=== PATIENT | female | born 1985 | race Caucasian/White ===

== ENCOUNTER 2017-08-19 13:13 | Outpatient (CLI) | payer BC | END 2017-08-19 13:14 | disposition home or self-care (01) | LOC: BICRAD 13:13 | PROVIDERS: ATTEND Allergy & Immunology | DX: R05 Cough (principal) | CPT/HCPCS: 71046 ==

== ENCOUNTER 2018-03-26 13:51 | Outpatient (CLI) | payer BC ==
--- NOTE | 2018-03-26 16:14 | ULT ---
PELVIC ULTRASOUND: Date: 03/26/18 HISTORY: Miscarriage. No heart tones. Decreasing beta HCG FINDINGS: The uterus measures 10.2 x 6.4 x 6.8 cm. The right ovary measures 1.7 x 1.4 x 2.1 cm. The left ovary measures 2.2 x 2.2 x 3.0 cm. Flow is demonstrated to both ovaries. No free fluid is seen in the cul-d e-sac. A single intrauterine gestation is seen with measurements corresponding to an estimated gestational a ge of 7 weeks/0 days. The gestational sac diameter measures 2.12 cm. Yolk sac and pole are not visualized. No heart tones are identified. IMPRESSION: Single intrauterine gestation of 7 weeks estimated gestational age without pole of heart rate. Correlation with serial serum beta HCG and follow-up ultrasound is recommended. POS: MARTIN
== END 2018-03-26 13:52 | disposition home or self-care (01) ==
LOC: SCSULT 13:51
PROVIDERS: ATTEND Family Medicine
DX: O03.9 Complete or unspecified spontaneous abortion without complication (principal); Z3A.01 Less than 8 weeks gestation of pregnancy
CPT/HCPCS: 36415; 76856; 84702

== ENCOUNTER 2018-05-23 12:17 | Outpatient (CLI) | payer BC ==
--- NOTE | 2018-05-23 12:51 | RAD ---
F3 views of the sacroiliac joints: 05/23/2018 COMPARISON: None HISTORY: Sacroiliitis FINDINGS: There is no widening of the sacroiliac joints or the pubic symphysis. There is a suggestion of mild increased sclerosis associated with the inferior aspect of the right sacroiliac joint. Left sacroiliac joint appears grossly unremarkable. No obvious erosion. No significant osteophytosis. IMPRESSION: Question mild degenerative changes of the right sacroiliac joint. Evaluation for sacroili itis could be best performed via MRI with and without contrast.
== END 2018-05-23 12:18 | disposition home or self-care (01) ==
LOC: BICRAD 12:17
PROVIDERS: ATTEND Internal Medicine Rheumatology
DX: M46.1 Sacroiliitis, not elsewhere classified (principal)
CPT/HCPCS: 72202

== ENCOUNTER 2018-07-21 16:00 | Outpatient (CLI) | payer BC | END 2018-07-21 16:01 | disposition home or self-care (01) | LOC: SLEEPLAB 16:00 | PROVIDERS: ATTEND Family Medicine | DX: G47.10 Hypersomnia, unspecified (principal); R53.83 Other fatigue | CPT/HCPCS: 95806 ==

== ENCOUNTER 2018-08-30 12:23 | Emergency (ER) | payer BC ==
[2018-08-30 13:15] LABS: #Basophils 0.1 thou/uL (0.0-0.2); #Eosinphils 0.1 thou/uL (0.0-0.7); #Lymphocytes 2.7 thou/uL (1.20-3.40); #Monocytes 0.6 thou/uL (0.11-0.59); #Neutrophils 4.9 thou/uL (1.40-6.50); %Basophils 0.7 % (0.0-1.0); %Eosinophils 0.7 % (0.0-10.0); %Lymphocytes 32.9 % (21.0-51.0); %Monocytes 6.9 % (0.0-10.0); %Neutrophils 58.7 % (42.0-75.0); Hemoglobin 12.3 g/dL (12.0-16.0); Mean Corpuscular HGB CONC 33.5 g/dL (32.0-36.0); Mean Corpuscular Hemoglobin 31.5 pg (27.0-31.0); Mean Corpuscular Volume 93.8 fL (78.0-98.0); Mean Platelet Volume 8.2 fL (7.4-10.4); Platelet Count 200 thou/uL (130-400); RBC Distribution Width 11.6 % (11.5-14.5); Red Blood Cell (RBC) Count 3.89 mill/uL (4.20-5.40); White Blood Cell (WBC) Count 8.3 thou/uL (4.8-10.8)
[2018-08-30 13:18] LABS: Bilirubin Negative (Negative); Blood, Urine Negative (Negative); Clarity Clear (Clear); Glucose, Urine (Dipstick) Normal (Negative); Leukocyte Negative Leu/uL (Negative); Nitrite Negative (Negative); Protein, Urine (Dipstick) Negative (Neg-Trace); Urobilinogen Normal mg/dL (Less than 2)
[2018-08-30 13:21] LABS: Pregnancy Test - Urine (BHCG) POSITIVE (Negative); Pregu Control Background? CLEAR/WHITE (CLR/WHITE); Pregu Control Bar Appear? YES (CONTROL BAR); Specific Gravity 1.004 (1.002-1.036)
--- NOTE | 2018-08-30 14:17 | ULT ---
TRANSABDOMINAL TRANSVAGINAL PELVIC ULTRASOUND DATE:: 08/30/2018 1:15 PM CLINICAL HISTORY: Pelvic cramping with history of . COMPARISON: None. TECHNIQUE: Grayscale, color Doppler and spectral Doppler images were obtained of the pelvis see a tra nsabdominal transvaginal approach Uterus: Size: 12.4 x 8.9 x 10.8 cm Mass: None Cervix: Within normal limits Endometrium: There is an intrauterine gestational sac containing a pole and yolk sac. Yolk sac measures 3.7 mm. The crown-rump length is 7.13 cm giving an estimated gestational age of 13 weeks 2 days. Cardiac activity is noted in 162 bpm. No perigestational hemorrhage is evident. Ovaries: Size: right measures 2.7 x 1.1 x 2 cm; left measures 2.8 x 1.4 x 2.1 cm Mass: None. Flow: Normal Cul-de-sac: No free fluid IMPRESSION: Single live intrauterine gestation. The average gestational age by ultrasound is 13 weeks and 2 days with estimated due to March 05, 2019
== END 2018-08-30 15:38 | disposition home or self-care (01) ==
LOC: ERS 12:23
DX: O20.0 Threatened abortion (principal); Z3A.14 14 weeks gestation of pregnancy
CPT/HCPCS: 76856; 81003; 81025; 84702; 85025; 86900; 86901; 93976

== ENCOUNTER 2018-09-30 07:31 | Outpatient (CLI) | payer BC ==
--- NOTE | 2018-09-30 08:38 | ULT ---
OB ULTRASOUND: 09/30/18 HISTORY: anatomy. FINDINGS: A single live intrauterine gestation is seen with measurements corresponding to an estimated gestatio nal age of 17 weeks, 6 days and ANKIT at 03/04/2019. The estimated weight measures 207 grams or 7 oz (44th percentile by Hadlock criteria). measurements are as follows: BPD 3.86 cm 17 weeks, 6 days HC 14.52 cm 17 weeks, 6 days AC 11.99 cm 17 weeks, 5 days FL 2.55 cm 17 weeks, 6 days heart rate measures 150 beats per minute. Placenta is anteriorly located without evidence of pl acenta previa. WENDY measures 9.5 cm. Three vessel cord, cord insertion, kidneys, bladder, stomach, four chamber heart, lateral ventr icles, cerebellum, spine, lips/nose, upper and lower extremities are visualized. No definite an omalies are seen. The cervical length measures 3.6 cm. IMPRESSION: Single live IUP of 17 weeks, 6 days estimated gestational age and ANKIT at 03/04/2019. POS: MARTIN
== END 2018-09-30 07:32 | disposition home or self-care (01) ==
LOC: BICULT 07:31
PROVIDERS: ATTEND Family Medicine
DX: Z34.82 Encounter for supervision of other normal pregnancy, second trimester (principal); Z3A.17 17 weeks gestation of pregnancy
CPT/HCPCS: 76805

== ENCOUNTER 2019-01-07 17:54 | Day surgery (SDC) | payer BC ==
[2019-01-07 18:28] VITALS: BP 120/58; TEMP 98.7
[2019-01-07 18:29] VITALS: BMI 25.3
[2019-01-07] MEDS ORDERED: hydrALAZINE 20 MG/ML VIAL SLOW IVP PRN (20:34)
[2019-01-07 20:56] LABS: Bacteria/HPF None Seen HPF (None Seen); Bilirubin Negative (Negative); Blood, Urine Negative (Negative); Clarity Clear (Clear); Glucose, Urine (Dipstick) Normal (Negative); Leukocyte Negative Leu/uL (Negative); Nitrite Negative (Negative); Protein, Urine (Dipstick) Negative (Neg-Trace); RBC/HPF None Seen HPF (0-3); Squamous Epithelial 0-3 HPF (0-3); Urobilinogen Normal mg/dL (Less than 2); WBC/HPF 0-3 HPF (0-3)
--- NOTE | 2019-01-07 21:44 | PRG ---
DATE OF SERVICE: 01/07/2019 PRIMARY OBSTETRIC: Iris Hidalgo MD CHIEF COMPLAINT: Pelvic pressure and abdominal pains. HISTORY OF PRESENT ILLNESS: The patient is a 33-year-old G4, P2 female with an intrauterine at 31 weeks and 6 days, presenting to Labor and Delivery with experiencing pelvic pressure and recurrent abdominal pains. The patient does report that she had a similar sensation when she was about to go into labor with her previous . The patient denies actual pain associated with the sensation, feeling more of this tightening. She denies any vaginal bleeding that she does report. She has been having more discharge than last couple days than usual. She also reports that she has had a yeast infection a couple times with this already. The patient reports to being on [place] for history of labor. She reports a recent illness with elevated temperature and a cough. She denies headache. Denies chest pain or shortness of breath. Denies nausea or vomiting. Reports some constipation. Denies diarrhea. Denies any new rashes. Denies hip problems, knee problems, or muscle weakness. Denies urinary urgency or frequency. PAST MEDICAL HISTORY: Mark's syndrome and ankylosing spondylitis. PAST SURGICAL HISTORY: She has had wisdom teeth removed. She has had nasal surgery. ALLERGIES: AMOXICILLIN, CODEINE, AND ERYTHROMYCIN. MEDICATIONS: vitamins and thyroid medication. SOCIAL HISTORY: Denies drug, alcohol, or tobacco use. OB LABS: Hepatitis B surface antigen is nonreactive in the first trimester. RPR nonreactive in the first trimester. HIV nonreactive in the third trimester. She is rubella immune. REVIEW OF SYSTEMS: Per HPI. PHYSICAL EXAMINATION: VITAL SIGNS: Blood pressure is 107/58, heart rate of 90, respiratory rate of 16, and temperature 98.8. GENERAL: She appears to be in no acute distress. She is alert, oriented, cooperative, and pleasant to interact with. HEAD: Normocephalic and atraumatic. LUNGS: Clear to auscultation bilaterally. HEART: Has a regular rate and rhythm. ABDOMEN: Gravid, soft with some minimal tenderness to palpation. EXTREMITIES: Nontender and nonedematous. : Vulva was without masses, lesions, or erythema. Vagina is moist with significant amount of discharge present. Cervix on digital exam is closed, thick, and high. heart tracing shows the fetus with a baseline in the 130s with moderate long-term variability, positive 15 x 15 accelerations, no decelerations. The tocometer showing a little bit of irritability with one or two contractions. LABORATORY DATA: Urinalysis is negative for nitrites, leukocyte esterase, blood, white blood cells, bacteria. Vaginitis screen is positive for Saarh. ASSESSMENT AND PLAN: The patient is a 33-year-old female with an intrauterine at 31 weeks and 6 days with no evidence of labor at this time. She does have yeast infection again. This has been treated twice in this . We will discuss with her what options she would like to attempt including using [id number] preparation again, a 7-day course or an oral preparation of Diflucan 150 mg taken once now and once in a week. The patient has been discharged home prior to final results and I will be contacting her to give her these results. Fetus has a category 1 tracing and reactive NST. The patient has been counseled to follow up with her primary OB as scheduled. Job ID: [id number]
== END 2019-01-07 20:45 | disposition home or self-care (01) ==
LOC: L&D/OP 17:54
PROVIDERS: ATTEND Family Medicine
DX: O99.89 Other specified diseases and conditions complicating pregnancy, childbirth and the puerperium (principal); R10.2 Pelvic and perineal pain; O99.283 Endocrine, nutritional and metabolic diseases complicating pregnancy, third trimester; E06.3 Autoimmune thyroiditis; O98.813 Other maternal infectious and parasitic diseases complicating pregnancy, third trimester; B37.9 Candidiasis, unspecified; O23.593 Infection of other part of genital tract in pregnancy, third trimester; B96.89 Other specified bacterial agents as the cause of diseases classified elsewhere; O09.213 Supervision of pregnancy with history of pre-term labor, third trimester; Z3A.31 31 weeks gestation of pregnancy; Z79.899 Other long term (current) drug therapy; Z88.0 Allergy status to penicillin; Z88.1 Allergy status to other antibiotic agents; Z88.5 Allergy status to narcotic agent; Z91.013 Allergy to seafood; Z91.018 Allergy to other foods
CPT/HCPCS: 81001; 87480; 87510; 87660; 99282

== ENCOUNTER 2019-02-21 15:35 | Day surgery (SDC) | payer BC ==
[2019-02-21 16:11] VITALS: BP 118/70; TEMP 99.3; BMI 25.8
--- NOTE | 2019-02-21 17:29 | PDOC.FPROB ---
FMR OB H&P: HPI - History of Present Illness Chief Complaint: dec FM Indentification: 33 yo here for dec FM History of Present Illness: 33 yo here for dec FM. Reports dec FM 2 days ago. Yesterday reported a lot of activity with baby "somersaulting" and today dec. FM. Denies CTX, VB, VD, LOF. Reports slight vaginal pressure. OB hx complicated by vaginal delivery at 36 weeks. Received full course of [place] this . Primary Care Physician: Dr. Iris Hidalgo FMR OB H&P: Current - Care : 4 Para: [id number] Gestational age: 38.2 Due date: 03/05/19 - OB Labs Blood type: unknown RH: unknown Antibody Screen: unknown HIV: unknown RPR: unknown HepBsAg: unknown Quad screen: unknown Gonorrhea: unknown Chlamydia: unknown GBS: positive FMR OB H&P: History - Past Medical History PMH: Ankylosing spondylitis Mark thyroiditis - OB History OB History: 1. 2 , one at 35 the other term - [employer] History [employer] History: Denies - Surgical History Sx History: Sinus surgeries in childhood - Social History Social History: Denies TAD - Family History Family History: Autoimmine diseases DM2-mother FMR OB H&P: Medications - Current Home Medications: Medication Instructions Recorded Confirmed Type Fluconazole [Diflucan] 150 mg PO Q7DAYS #2 tablet 01/07/19 Rx Fluconazole [Diflucan] 150 mg PO Q7DAYS #2 tablet 01/07/19 Rx Allergies/Adverse Reactions: Allergies Allergy/AdvReac Type Severity Reaction Status Date / Time gelatin Allergy Intermediate Swollen Verified 01/07/19 18:26 Lips amoxicillin [From Augmentin] Allergy Mild Nausea Verified 01/07/19 18:26 clavulanic acid Allergy Mild Nausea Verified 01/07/19 18:26 [From Augmentin] codeine Allergy Mild Nausea Verified 01/07/19 18:26 erythromycin base Allergy Mild Nausea Verified 01/07/19 18:26 banana Allergy Verified 01/07/19 18:26 zapata Allergy Verified 01/07/19 18:26 Beef Containing Products Allergy Verified 01/07/19 18:26 Fish Containing Products Allergy Verified 01/07/19 18:26 gluten Allergy Verified 01/07/19 18:26 modoc Allergy Verified 01/07/19 18:26 onion Allergy Verified 01/07/19 18:26 pineapple Allergy Verified 01/07/19 18:26 pork derived (porcine) Allergy Verified 01/07/19 18:26 spinach Allergy Verified 01/07/19 18:26 strawberry Allergy Verified 01/07/19 18:26 FMR OB H&P: ROS - Review of Systems General: denies: fever/chills, weight/appetite/sleep changes ENT: denies: nasal congestion, rhinorrhea, sore throat Cardiovascular: denies: chest pain Respiratory: denies: cough, shortness of breath Gastrointestinal: denies: abdominal pain, nausea, vomiting Genitourinary (Female): reports: vaginal pressure. denies: dysuria, hematuria, vaginal pain, contractions Musculoskeletal: denies: pain, stiffness Neurologic: denies: syncope, seizures, weakness Integumentary: denies: rash, lesions Breast: denies: skin changes Hematologic/Lymphatic: denies: prolonged or excessive bleeding Psychological: denies: depression, anxiety FMR OB H&P: Vital Signs - Maternal Vital signs: Vital Signs - First Documented Temp Pulse Resp BP 99.3 F 97 18 118/70 02/21/19 15:55 02/21/19 15:55 02/21/19 15:55 02/21/19 15:55 - Heart Tones Baseline: 140 Variability: moderate Acceleration: present Deceleration: absent [place] contractions every: uterine irritability FMR OB H&P: Physical Exam - Physical Exam General: NAD, awake, alert and oriented HEENT: normocephalic and atraumatic, EOMI, MMM, conjunctiva clear Neck: FROM, trachea midline Chest: non-tender to palpation, no lesions Heart: RRR, normal S1/S2, no murmurs/rubs/gallops General: CTAB, no respiratory distress, good air movement Abdomen: gravid, non-tender Skin: good tugor, no jaundice Lymphatic: no unusual bruising or bleeding, no purpura, no petechia Psychiatric: intact recent and remote memory, good judgement and insight FMR OB H&P: A/P - Problem List (1) with 38 completed weeks gestation Status: Acute Code(s): Z3A.38 - 38 WEEKS GESTATION OF (2) History of delivery, currently in third trimester Status: Acute Code(s): O09.213 - SUPRVSN OF PREG W HISTORY OF PRE-TERM LABOR, THIRD TRIMESTER (3) Ankylosing spondylitis Status: Acute Code(s): M45.9 - ANKYLOSING SPONDYLITIS OF UNSPECIFIED SITES IN SPINE (4) Mark's thyroiditis Status: Acute Code(s): E06.3 - AUTOIMMUNE THYROIDITIS Discussion: Date/Time: 02/21/191726 1. Dec FM in at 38 weeks -FHT: Reactive & reassuring thus far, no CTX -SVE: /H 2. Hx of -Completed [place] course 3. Ankylosing Spondylitis 4. Mark thyroiditis -On Synthroid This H&P was discussed with Dr. Narayanan who agrees with the above documentation and plan. Addendum - Attending - Attending Attestation Date/Time: 02/21/192052 I personally evaluated the patient and discussed the management with Dr. Hassan. I agree with the History, Examination, Assessment and Plan documented above.
--- NOTE | 2019-02-21 17:39 | PDOC.EVN ---
Event Note - Event Note Event Note: FHT: reactive & reassuring Patient endorsed frequent FM during this observation period No signs of labor at this time Counseled on signs of labor & gave return precautions Answered all questions
== END 2019-02-21 17:50 | disposition home health service (06) ==
LOC: L&D/OP 15:35
PROVIDERS: ATTEND Family Medicine
DX: O36.8130 Decreased fetal movements, third trimester, not applicable or unspecified (principal); O99.89 Other specified diseases and conditions complicating pregnancy, childbirth and the puerperium; R10.2 Pelvic and perineal pain; O99.283 Endocrine, nutritional and metabolic diseases complicating pregnancy, third trimester; E06.3 Autoimmune thyroiditis; M45.9 Ankylosing spondylitis of unspecified sites in spine; O09.213 Supervision of pregnancy with history of pre-term labor, third trimester; Z3A.38 38 weeks gestation of pregnancy; Z79.899 Other long term (current) drug therapy; Z88.0 Allergy status to penicillin; Z88.1 Allergy status to other antibiotic agents; Z88.8 Allergy status to other drugs, medicaments and biological substances; Z91.013 Allergy to seafood; Z91.018 Allergy to other foods
CPT/HCPCS: 99282

== ENCOUNTER 2019-03-05 14:04 | Inpatient (IN) | payer BC ==
[2019-03-17] MEDS ORDERED: Ibuprofen 800 MG TAB PO PRN (05:31)
[2019-03-17] MEDS ORDERED: Lactated Ringer's 1,000 ML IV SCH (05:31)
[2019-03-17] MEDS ORDERED: Acetaminophen 500 MG TAB PO PRN ×2 (05:31→18:10)
[2019-03-17] MEDS ORDERED: Ondansetron PF 4 MG/2 ML Vial IVP PRN ×2 (05:31→10:14)
[2019-03-17] MEDS ORDERED: Methylergonovine 0.2 MG/ML VIAL IM PRN (05:31)
[2019-03-17] MEDS ORDERED: NS w/ Oxytocin 10 units 500 ML IV SCH ×2 (05:31)
[2019-03-17] MEDS ORDERED: NS / Oxytocin 40 units/1000ml 1,000 ML IV PRN (05:31)
[2019-03-17] MEDS ORDERED: hydrALAZINE 20 MG/ML VIAL SLOW IVP PRN ×2 (05:31→10:14)
[2019-03-17] MEDS ORDERED: Lidocaine 1% (PF) 30 ML VIAL SC PRN (05:31)
[2019-03-17] MEDS ORDERED: Misoprostol 200 MCG TAB PR PRN (05:31)
[2019-03-17] MEDS ORDERED: Promethazine HCl 25 MG/ML VIAL IM PRN (05:31)
[2019-03-17 05:53] VITALS: BMI 26.3
[2019-03-17] MEDS ORDERED: ceFAZolin 1 GM/D5W 1 GM in Premix Bag 1 BAG IVPB SCH (06:00)
[2019-03-17] MEDS ORDERED: Lidocaine 1% (PF) 30 ML VIAL ONE (06:24)
[2019-03-17] MEDS ORDERED: NS / Oxytocin 40 units/1000ml 0 ML ONE (06:25)
[2019-03-17] MEDS ORDERED: Oxytocin 10 UNITS/ML VIAL ONE (06:28)
[2019-03-17 06:58] LABS: Hemoglobin 14.4 g/dL (12.0-16.0); Mean Corpuscular HGB CONC 34.3 g/dL (32.0-36.0); Mean Corpuscular Hemoglobin 31.6 pg (27.0-31.0); Mean Corpuscular Volume 92.1 fL (78.0-98.0); Mean Platelet Volume 9.3 fL (7.4-10.4); Platelet Count 170 thou/uL (130-400); RBC Distribution Width 11.6 % (11.5-14.5); Red Blood Cell (RBC) Count 4.57 mill/uL (4.20-5.40); White Blood Cell (WBC) Count 10.5 thou/uL (4.8-10.8)
[2019-03-17 07:38] LABS: Syphilis Antibody Nonreactive (Nonreactive); Syphilis Antibody Index 0.03 S/CO (<1.00 Non-Reactive)
[2019-03-17 07:45] LABS: HBSAg Index 0.13 S/CO (0-0.99); Hep B Surf Ag Non-Reactive S/CO (NonReactive)
[2019-03-17] MEDS ORDERED: Milk Of Magnesia 30 ML UDCUP PO PRN (10:14)
[2019-03-17] MEDS ORDERED: NS / Oxytocin 40 units/1000ml 1,000 ML IV SCH (10:14)
[2019-03-17] MEDS ORDERED: Bisacodyl 10 MG SUPP PR PRN (10:14)
[2019-03-17] MEDS ORDERED: Preparation H Ointment 28 GM TUBE PR PRN (10:14)
[2019-03-17] MEDS ORDERED: Benzocaine-Menthol 82.5 ML CAN TOP PRN (10:14)
[2019-03-17] MEDS ORDERED: diphenhydrAMINE 25 MG CAP PO PRN (10:14)
[2019-03-17] MEDS ORDERED: Lanolin Ointment 7 GM TUBE TOP PRN (10:14)
[2019-03-17] MEDS: Ibuprofen 800 MG TAB PO SCH ×2 (13:00→23:32)
[2019-03-17] MEDS: Docusate Calcium (SURFAK) 240 MG CAP PO SCH (23:32)
[2019-03-18 08:09] VITALS: BP 105/53; TEMP 98.5
[2019-03-18] MEDS: Docusate Calcium (SURFAK) 240 MG CAP PO SCH (08:45)
== END 2019-03-18 11:55 | disposition home or self-care (01) | DRG 807 ==
LOC: EDSTATUS 14:43 → L&D-LIB 03-17 05:05 → L&D 03-17 05:05 → UNDOADMIN 03-17 05:05 → 3SW 03-17 10:33
PROVIDERS: ADMIT Family Medicine; ATTEND Family Medicine
PROC: 10E0XZZ Delivery of Products of Conception, External Approach (ICD-10-PCS; principal; 2019-03-17)
PROC: 3E033VJ Introduction of Other Hormone into Peripheral Vein, Percutaneous Approach (ICD-10-PCS; 2019-03-17)
PROC: 3E0P7VZ Introduction of Hormone into Female Reproductive, Via Natural or Artificial Opening (ICD-10-PCS; 2019-03-17)
DX: O48.0 Post-term pregnancy (principal); Z37.0 Single live birth; Z3A.41 41 weeks gestation of pregnancy; O99.344 Other mental disorders complicating childbirth; O99.284 Endocrine, nutritional and metabolic diseases complicating childbirth; E03.9 Hypothyroidism, unspecified; F41.9 Anxiety disorder, unspecified; F32.9 Major depressive disorder, single episode, unspecified; O99.824 Streptococcus B carrier state complicating childbirth; O75.89 Other specified complications of labor and delivery; M45.9 Ankylosing spondylitis of unspecified sites in spine; Z88.1 Allergy status to other antibiotic agents; Z88.5 Allergy status to narcotic agent; Z88.8 Allergy status to other drugs, medicaments and biological substances; Z79.890 Hormone replacement therapy
CPT/HCPCS: 36415; 85027; 86780; 86850; 86900; 86901; 87340; J2001; J2590

== ENCOUNTER 2019-05-04 16:07 | Outpatient (CLI) | payer BC ==
--- NOTE | 2019-05-04 16:31 | RAD ---
XR Lumbar Spine Min 4 View HISTORY: Low back pain FINDINGS: No evidence of fracture, subluxation, bony destruction, spondylolysis or spondylolisthesis is seen.
== END 2019-05-04 16:08 | disposition home or self-care (01) ==
LOC: BICRAD 16:07
PROVIDERS: ATTEND Physician Assistant
DX: M54.5 Low back pain (principal)
CPT/HCPCS: 72110

== ENCOUNTER 2020-06-17 14:03 | Outpatient (CLI) | payer BC | END 2020-06-17 14:04 | disposition home or self-care (01) | LOC: TBSIIMAG 14:03 | PROVIDERS: ATTEND Neurological Surgery | DX: M54.12 Radiculopathy, cervical region (principal); M47.26 Other spondylosis with radiculopathy, lumbar region; M51.16 Intervertebral disc disorders with radiculopathy, lumbar region | CPT/HCPCS: 72040; 72100; 72141; 72148 ==

== ENCOUNTER 2021-01-17 07:47 | Outpatient (CLI) | payer BC | END 2021-01-17 07:48 | disposition home or self-care (01) | LOC: BICULT 07:47 | PROVIDERS: ATTEND Obstetrics & Gynecology | DX: N92.6 Irregular menstruation, unspecified (principal) | CPT/HCPCS: 76856 ==